=== PATIENT | male | born 1995 ===

== ENCOUNTER 2024-06-19 20:37 | Emergency (ER) | payer OTHER, BC ==
[~2024-06-19] VITALS: Ht 177.8 cm; Wt 93.2 kg
[2024-06-19 21:23] VITALS: BP 120/80; PULSE 80; RESP 16; TEMP 98.6; O2SAT 99
== END 2024-06-19 21:24 | disposition home or self-care (01) ==
LOC: ER 20:38
DX: S00.81XA Abrasion of other part of head, initial encounter (principal); R10.9 Unspecified abdominal pain; R51.9 Headache, unspecified; V49.88XA Car occupant (driver) (passenger) injured in other specified transport accidents, initial encounter; Y93.89 Activity, other specified; Y92.89 Other specified places as the place of occurrence of the external cause; Y99.8 Other external cause status
CPT/HCPCS: 99284